=== PATIENT | female | born 1985 | race Caucasian/White ===

== ENCOUNTER 2020-07-17 10:28 | Emergency (ER) | payer BC ==
[2020-07-17 11:17] VITALS: BP 146/87
[2020-07-17 11:25] LABS: ABSOLUTE BASOPHILS # (AUTO) 0.1 10^3/uL (0.0-0.2); ABSOLUTE LYMPHOCYTES (AUTO) 1.6 10^3/uL (0.5-4.7); ABSOLUTE MONOCYTES (AUTO) 0.5 10^3/uL (0.1-1.4); BASOPHILS % (AUTO) 0.7 % (0-2); EOSINOPHILS % (AUTO) 0.1 % (0-6); HEMATOCRIT 47.2 % (36.0-47.0); HEMOGLOBIN 16.6 g/dL (12.0-15.5); LYMPHOCYTES % (AUTO) 19.9 % (13-45); MEAN CORPUSCULAR HEMOGLOBIN 29.5 pg (27.0-33.4); MEAN CORPUSCULAR HGB CONC 35.1 g/dL (32.0-36.0); MEAN CORPUSCULAR VOLUME 84 fl (80-97); MONOCYTES % (AUTO) 6.4 % (3-13); PLATELET COUNT 264 10^3/uL (150-450); RED BLOOD COUNT 5.62 10^6/uL (3.72-5.28); RED CELL DISTRIBUTION WIDTH 12.5 % (11.5-14.0); SEGMENTED NEUTROPHILS % (AUTO) 72.9 % (42-78); TOTAL CELLS COUNTED % (AUTO) 100 %; WHITE BLOOD COUNT 8.2 10^3/uL (4.0-10.5)
[2020-07-17 11:42] LABS: ALBUMIN 5.1 g/dL (3.5-5.0); ALKALINE PHOSPHATASE 55 U/L (38-126); ANION GAP 13 (5-19); ASPARTATE AMINO TRANSFERASE 24 U/L (14-36); BILIRUBIN,DIRECT 0.2 mg/dL (0.0-0.4); BILIRUBIN,TOTAL 1.5 mg/dL (0.2-1.3); BLOOD UREA NITROGEN 10 mg/dL (7-20); CALCIUM 9.9 mg/dL (8.4-10.2); CARBON DIOXIDE 23 mmol/L (22-30); CHLORIDE 106 mmol/L (98-107); GLUCOSE 125 mg/dL (75-110); POTASSIUM 3.8 mmol/L (3.6-5.0); TOTAL PROTEIN 8.1 g/dL (6.3-8.2)
[2020-07-17] MEDS ORDERED: LORAZEPAM INJ 2 MG/1 ML VIAL IV ONE (12:09)
[2020-07-17] MEDS ORDERED: NORMAL SALINE 1000 ML 1,000 ML IV ONE (12:09)
--- NOTE | 2020-07-17 12:17 | ER Document Report ---
ED General - General Chief Complaint: Anxiety Stated Complaint: FAST HEARTBEAT/POSSIBLE ANXIETY Time Seen by Provider: 07/17/20 11:58 Notes: HPI: 34-year-old female that states she woke up this morning and felt "very panicky" and felt her heart "racing". She denies any chest pain, calf pain or leg swelling, fevers or vomiting. Patient states she has a history of anxiety with panic attacks starting in December. She has been followed by [facility] and had been placed on lorazepam. She states no blood work has been ordered or evaluated since the onset of her anxiety. She will try a course of Prozac that was unsuccessful. She did not like the side effects. She does have a therapy appointment for talk therapy tomorrow. She feels much better on my interview than when she arrived. ROS: See HPI All other review of systems reviewed and otherwise negative Reviewed vital signs and nursing note as charted by RN. PHYSICAL EXAM: CONSTITUTIONAL: Alert and oriented and responds appropriately to questions. Well-appearing; well-nourished HEAD: Normocephalic; atraumatic EYES: PERRL; no nystagmus ENT: Normal nose; no rhinorrhea; moist mucous membranes; pharynx without lesions noted NECK: Supple without meningismus; non-tender; no cervical lymphadenopathy, no masses CARD: Regular rate and rhythm; heart rate is currently 93; no murmurs; symmetric distal pulses RESP: Normal chest excursion without splinting or tachypnea; breath sounds clear and equal bilaterally; no wheezes, no rhonchi, no rales ABD/GI: Normal bowel sounds; non-distended; soft, non-tender; no palpable organomegaly or masses BACK: The back appears normal and is non-tender to palpation EXT: Normal ROM in all joints; non-tender to palpation; no edema SKIN: No acute lesions noted NEURO: CN 2-12 intact; 5/5 bilateral upper and lower extremity strength with sensation intact to light touch PSYCH: The patient's mood and manner are appropriate. Grooming and personal hygiene are appropriate. TRAVEL OUTSIDE OF THE [place] IN LAST 30 DAYS: No - Related Data Allergies/Adverse Reactions: hydrocodone [Hydrocodone] Allergy (Unknown, Verified 07/17/20 11:26) Past Medical History - Social History Smoking Status: Unknown if Ever Smoked Family History: Reviewed & Not Pertinent - Immunizations Hx Diphtheria, Pertussis, Tetanus Vaccination: No - received 2008 Physical Exam - Vital signs Vitals: Temp Pulse Resp BP Pulse Ox 99.2 F 130 H 20 151/92 H 99 07/17/20 10:52 07/17/20 10:52 07/17/20 10:52 07/17/20 10:52 07/17/20 10:52 Course - Re-evaluation Re-evalutation: 07/17/20 12:13 Given the history and physical examination with a heart rate currently of 93, with vital signs otherwise unremarkable, I will evaluate for the possibility of an organic cause for the patient's anxiety/tachycardia including a TSH level and electrolyte analysis. I do believe ACS, PE, dissection to be unlikely. Patient looks extraordinarily well is in no acute distress. EKG initially shows a heart of 145, sinus tachycardia, some rate related lateral depressions. No ST elevation. 07/17/20 13:22 Labs as recorded. Patient is feeling much better after the Ativan and fluids. Heart rate is currently 89. Blood pressure stable. Patient has benzodiazepines at home and has her first therapy appointment tomorrow. Patient denies any suicidal homicidal ideations. Patient feels very comfortable going home. - Vital Signs Vital signs: Temp Pulse Resp BP Pulse Ox 99.2 F 130 H 17 146/87 H 100 07/17/20 10:52 07/17/20 10:52 07/17/20 11:07 07/17/20 11:07 07/17/20 11:07 - Laboratory Result Diagrams: 07/17/20 11:00 07/17/20 11:00 Laboratory results interpreted by me: 07/17/20 07/17/20 11:00 11:00 RBC 5.62 H Hgb 16.6 H Hct 47.2 H Glucose 125 H Total Bilirubin 1.5 H Albumin 5.1 H Discharge - Discharge Clinical Impression: Palpitations, Anxiety reaction Condition: Good Disposition: HOME, SELF-CARE Additional Instructions: Come back immediately with any chest pain, worsening palpitations, fever, leg swelling, or any other acute problems. Please make sure that you stay away from any caffeinated beverages including sodas, diet sodas, teas, dark chocolate, or other similar substances. Please follow-up with your therapy appointment tomorrow.
--- NOTE | 2020-07-17 12:40 | RADIOLOGY REPORT (SQ) ---
EXAM DESCRIPTION: CHEST SINGLE VIEW IMAGES COMPLETED DATE/TIME: 07/17/2020 12:19 pm REASON FOR STUDY: 2; anxiety reaction COMPARISON: None. NUMBER OF VIEWS: One view. TECHNIQUE: Single frontal radiographic view of the chest acquired. LIMITATIONS: None. FINDINGS: LUNGS AND PLEURA: No opacities, masses or pneumothorax. No pleural effusion. MEDIASTINUM AND HILAR STRUCTURES: No masses. Contour normal. HEART AND VASCULAR STRUCTURES: Heart normal in size. Normal vasculature. BONES: No acute findings. HARDWARE: None in the chest. OTHER: No other significant finding. IMPRESSION: NO SIGNIFICANT RADIOGRAPHIC FINDING IN THE CHEST. TECHNICAL DOCUMENTATION: JOB ID: [id number] 2010 [employer]- All Rights Reserved Reading location - IP/workstation name: [email or web address]
--- NOTE | 2020-07-17 20:21 | EKG REPORT ---
SEVERITY:- ABNORMAL ECG - SINUS TACHYCARDIA ATRIAL PREMATURE COMPLEX REPOL ABNRM SUGGESTS ISCHEMIA, DIFFUSE LEADS : Confirmed by: Isadora Haque 17-Jul-2020 20:21:35
== END 2020-07-17 15:15 | disposition home or self-care (01) ==
LOC: ER 10:28
DX: F41.1 Generalized anxiety disorder (principal); F41.0 Panic disorder [episodic paroxysmal anxiety]; R00.2 Palpitations; R00.0 Tachycardia, unspecified; Z79.899 Other long term (current) drug therapy; Z88.6 Allergy status to analgesic agent; Z88.5 Allergy status to narcotic agent
CPT/HCPCS: 93005; 99285; 96361; 96374; 36415; 84443; 85025; 81025; 80053; 84484; 71045; 93010; J2060; J7030

== ENCOUNTER → 2020-07-28 | Outpatient (CLI) | payer BC ==
--- NOTE | 2020-07-28 11:10 | WOMENS IMAGING REPORT ---
EXAM DESCRIPTION: U/S ABDOMEN TOTAL IMAGES COMPLETED DATE/TIME: 07/28/2020 7:51 am REASON FOR STUDY: R10.13 EPIGASTRIC PAIN R10.13 EPIGASTRIC PAIN COMPARISON: None. TECHNIQUE: Dynamic and static grayscale images acquired of the abdomen and recorded on PACS. Additio nal selected color Doppler and spectral images recorded. Note: Study does not meet criteria for complete doppler/duplex scan LIMITATIONS: None. FINDINGS: PANCREAS: No masses. Visualized pancreatic duct normal caliber. LIVER: No masses. Echotexture normal. LIVER VASCULATURE: Normal directional flow of the main portal vein and hepatic veins. GALLBLADDER: No stones. Normal wall thickness. No pericholecystic fluid. ULTRASOUND-DETECTED BLACKWELL'S SIGN: Negative. INTRAHEPATIC DUCTS AND COMMON DUCT: CBD and intrahepatic ducts normal caliber. No filling defects. INFERIOR VENA CAVA: Normal flow. AORTA: No aneurysm. RIGHT KIDNEY: Normal size. Normal echogenicity. No solid or suspicious masses. No hydronephros is. No calcifications. LEFT KIDNEY: Normal size. Normal echogenicity. No solid or suspicious masses. No hydronephrosi s. No calcifications. SPLEEN: Normal size. No solid masses. PERITONEAL AND PLEURAL SPACES: No ascites or effusions. OTHER: No other significant finding. IMPRESSION: NORMAL ABDOMINAL ULTRASOUND. TECHNICAL DOCUMENTATION: JOB ID: [id number] 2010 [employer]- All Rights Reserved Reading location - IP/workstation name: [email or web address]
== END ==
LOC: WI 07:15
PROVIDERS: ATTEND Internal Medicine
DX: R10.13 Epigastric pain (principal)
CPT/HCPCS: 76700